=== PATIENT | female | born 1945 | race Caucasian/White ===

== ENCOUNTER → 2017-04-22 | Day surgery (SDC) | payer MEDICARE, OTHER ==
[~2017-04-22] MED LIST: FENTANYL CITRATE/PF 100MCG/2 ML INJ ONE; LIDOCAINE HCL 2% LOCAL INJ 5 ML SDV VIAL INJ ONE; MIDAZOLAM HCL 2 MG/2 ML VIAL ONE; PROPOFOL IV EMULSION 10 MG/ML 50 ML VIAL ONE
--- NOTE | 2017-04-22 16:45 | Operative Report ---
DATE OF PROCEDURE: April 22, 2017 REFERRING PHYSICIAN: Dr. Isaiah Lopez. PROCEDURE PERFORMED: Colonoscopy and polypectomy note with a gastroscope. INDICATIONS FOR COLONOSCOPY: Colorectal cancer screening, personal history of colon polyps. MEDICATION: Patient was done under MAC. Please see anesthesiologist's note. PROCEDURE: With patient in left lateral decubitus position, the flexible fiberoptic Olympus colonoscope was inserted into the rectum with ease and advanced to approximately 30 cm from the anal verge. It could not be advanced any further as the sigmoid colon was excessively tortuous and sharply angulated. The scope was then withdrawn and the gastroscope was then inserted and advanced in an in and out fashion all the way to the cecum. It was slowly withdrawn. However, visualization obviously of the colon was suboptimal due to the limitations of the gastroscope in examining the colon. One polyp was cold snared from the ascending colon and also biopsied. The transverse grossly appeared to be within normal limits. One polyp was hot biopsied from the proximal descending colon. The rest of the descending colon appeared to be within normal limits. The sigmoid colon was excessively tortuous, sharply angulated and suboptimally visualized. The rectum appeared to be within normal limits. The scope was then retroflexed into the distal rectum and small internal hemorrhoids were noted, none of which was actively bleeding. The scope was then straightened out. It was subsequently withdrawn. Patient tolerated the procedure well. IMPRESSION: 1. Ascending colon polyp removed per cold snare polypectomy and biopsy forceps. 2. Descending colon polyp, hot biopsied. 3. Sigmoid colon excessively tortuous and spastic, suboptimally visualized. 4. Internal hemorrhoids, none actively bleeding. PLAN: Follow up histology. Initiate high-fiber, low-fat diet. Initiate high-fiber supplement. Patient will need a followup colonoscopy in 3 years. Job#: [id number] GH cc:ISAIAH LOPEZ M.D.
== END | disposition home or self-care (01) ==
LOC: OR 11:19
PROVIDERS: ATTEND Internal Medicine Gastroenterology
DX: Z12.11 Encounter for screening for malignant neoplasm of colon (principal); D12.2 Benign neoplasm of ascending colon; K58.9 Irritable bowel syndrome, unspecified; K64.8 Other hemorrhoids; R03.0 Elevated blood-pressure reading, without diagnosis of hypertension; R56.9 Unspecified convulsions; I44.0 Atrioventricular block, first degree; Z01.810 Encounter for preprocedural cardiovascular examination; Z68.26 Body mass index [BMI] 26.0-26.9, adult; Z83.71 Family history of colonic polyps
CPT/HCPCS: 45384; 45385; 88305; 93005; J2001; J2250; 45380

== ENCOUNTER → 2022-01-01 | Outpatient (CLI) | payer MEDICARE, OTHER | LOC: RAD 10:42 | PROVIDERS: ATTEND Internal Medicine Critical Care Medicine | DX: R05.9 Cough, unspecified (principal) | CPT/HCPCS: 71046 ==